=== PATIENT | male | born 1940 | race African-American/Black ===

== ENCOUNTER 2017-04-17 10:40 | Observation (INO) | payer MEDICARE ==
[~2017-04-17] VITALS: Ht 175.3 cm; Wt 86.5 kg
[~2017-04-17 10:40] MED LIST: AVELOX400 MG OR; AZITHROMYCIN500 MG PO; CEPHALEXIN500 M1 PO; CLARITIN10 MG OR; FLEXERIL OR; LOPRESSOR50 M1 PO; LORTAB 7.57.5 MG PO; ROBITUSSIN AC10 ML OR; TIZANIDINE4 MG PO; TUSSIONEX1 ML OR; ULTRAM50 M1 OR; ULTRAM50 MG OR; ULTRAM50 MG PO; UNKNOWN BP MED; ZPAK PO
--- NOTE | 2017-04-17 10:46 | NUR ---
AMBULATORY TO ER ROOM 6, TOBED
[2017-04-17 11:16] LABS: HEMATOCRIT 41.5 % (39.0-50.0); HEMOGLOBIN 13.9 g/dl (14.0-18.0); IMMATURE GRANULOCYTES 0.2 % (0.0-1.0); MEAN CELL VOLUME 91.2 fL CALC (80.0-100.0); MEAN CORPUSCULAR HGB 30.5 pG CALC (26.0-32.0); MEAN CORPUSCULAR HGB CONC 33.5 g/L CALC (32.0-36.0); NEUT# 3.44 thou/uL (1.82-7.42); RED BLOOD COUNT 4.55 mill/uL (4.70-6.10); RED CELL DISTRI WIDTH 13.5 % (11.5-15.5)
[2017-04-17 11:28] LABS: ALBUMIN 4.6 g/dL (3.2-5.0); ALKALINE PHOSPHATASE 76 u/l (38-126); ANION GAP 15 (6-22 (CALC)); BILIRUBIN, TOTAL 1.1 mg/dL (0.0-1.4); BUN 14 mg/dL (8-23); BUN/CREATININE RATIO 16 (12-20 (CALC)); CALCIUM 9.4 mg/dL (8.4-10.2); CARBON DIOXIDE 25 mmol/l (22-30); CHLORIDE 106 mmol/l (95-108); CREATININE 0.9 mg/dL (0.7-1.3); GFR > 60 ML/MIN (>=60 (CALC)); GFR FOR AFR.AMER. > 60 ML/MIN (>=60 (CALC)); GLUCOSE 87 mg/dL (82-115); POTASSIUM 3.9 mmol/l (3.5-5.1); SGOT/AST 28 u/l (19-48); SGPT/ALT 28 u/l (11-66); SODIUM 142 mmol/l (137-146); TOTAL PROTEIN 8.3 g/dL (6.3-8.2)
[2017-04-17 11:40] LABS: MYOGLOBIN 101 ng/mL (0 - 121)
--- NOTE | 2017-04-17 11:40 | NUR ---
PT RESTING ON THE STRETCHER WITH NO SIGNS OF DISTRESS. AWAITING XRAY TESTS. IV SITE HEALTHY
--- NOTE | 2017-04-17 12:30 | NUR ---
PT GIVEN ADDITIONAL DOSE OF BETA YING FOR CONTINUED HTN. PT TOLERATED WELL. STATES NECK PAIN IS SLIGHTLY IMPORVED. BP AFTER DOSE WAS 135/90
--- NOTE | 2017-04-17 12:50 | NUR ---
MD IN ROOM EXPLAINING TEST RESULTS TO PT. PT AWARE OF NEED FOR ADMISSION. PT AGREES.
--- NOTE | 2017-04-17 13:11 | NUR ---
PT AWAITING ADMISSION. MS WILL CALL BACK FOR PT REPORT. NO SGNS OF DISTRESS NOTED. IV SITE HEA;THY
--- NOTE | 2017-04-17 13:30 | NUR ---
Admission Note Report Given to: SBAR PRINTED TO FLOOR Transported by: Wheelchair X Stretcher Transported with: X Nurse Transporter X Patent IV O2 X Sql Database Developer
--- NOTE | 2017-04-17 13:40 | NUR ---
PT.ARRIVED TO FLOOR, SELF AMBULATED TO STANDING SCALE AND TO BED. PT.V/S ASSESSED, BP IS 170/103,HR70 UPON ARRIVING TO FLOOR. PT.IS BEING ORIENTED TO HIS ROOM, CALL SYSTEM, LIGHTS, BED AND CALLING FOR ASSISTANCE BEFORE AMBULATING FOR SAFETY PRECAUTIONS. ELLIOTT REHMAN NOTIFIED OF BP.
[2017-04-17 13:43] VITALS: BP 170/103
[2017-04-17 14:25] VITALS: BP 166/102
--- NOTE | 2017-04-17 14:35 | NUR ---
PT.BP 166/102, MEDICATED W/APPRESALINE AT THIS TIME. WILL CONTINUE TO MONITOR BP CLOSELY.
[2017-04-17 15:00] VITALS: BP 154/93
[2017-04-17 16:00] VITALS: BP 141/90
--- NOTE | 2017-04-17 17:03 | NUR ---
I HAVE SPOKEN W/PHARMACY REGARDING MYCELEX CREAM, I AM STILL WAITING FOR PHARMACY TO BRING CREAM TO THE FLOOR. IT WAS SCHEDULED FOR 1457, BUT I AM UNABLE TO ADMINISTER.
--- NOTE | 2017-04-17 19:40 | NUR ---
PATIENT RESTING IN BED ON FIRST ROUNDS-ALERT AND ORIENTEDX3. PATIENT C/O NECK PAIN-MEDICATED WITH BACLOFENFOR PAIN AND WITH MOTRIN FOR TEMP OF 100.6 AND PAIN. BP-162/103-MEDICATED WITH APRESOLINE 10MG IVP FOR HTN. HEP LOCK TO RIGHT AC INTACT AND APPEARS HEALTHY AT THIS TIME. SAFETY PRECAUTIONS REINFORCED. CALL LIGHT IN REACH. WILL CONT TO MONITOR.
[2017-04-17 20:15] VITALS: BP 114/62
--- NOTE | 2017-04-17 20:26 | NUR ---
VS [id number], HR-84, TEMP 100.1. PATIENT RESTING IN BED AND STATES SOME PAIN RELIEF FROM MOTRIN AND BACLOFEN. INSTRUCTED PATIENT THAT WE NEED URINE SPEC TO SENT TO LAB AND PROVIDED WITH URINAL. VERBALIZES UNDERSTANDING OF THE STATED. CALL LIGHT IN REACH. WILL CONT TO MONITOR.
--- NOTE | 2017-04-17 23:36 | NUR ---
PATIENT APPEARS SLEEPING POSITIONED ON RIGHT SIDE WITH EYES CLOSED. CALL LIGHT IN REACH. WILL CONT TO MONITOR.
[2017-04-18 00:05] VITALS: BP 125/87
[2017-04-18 00:32] LABS: URINE BLOOD DIPSTICK NEGATIVE (NEGATIVE); URINE COLOR YELLOW; URINE GLUCOSE - DIPSTICK NEGATIVE (NEGATIVE); URINE KETONE 15 mg/dL (NEGATIVE); URINE LEUK ESTERASE NEGATIVE (NEGATIVE); URINE NITRITE - DIPSTICK NEGATIVE (Negative); URINE PROTEIN - DIPSTICK NEGATIVE (NEG-TRACE); URINE SPECIFIC GRAVITY 1.025
[2017-04-18 00:38] LABS: URINE CLARITY SL CLOUDY
[2017-04-18 00:39] LABS: URINE BILIRUBIN - DIPSTICK NEGATIVE (NEGATIVE)
[2017-04-18 03:52] VITALS: BP 129/84
--- NOTE | 2017-04-18 04:17 | NUR ---
PATIENT RESTING IN BED AT THIS TIME WITH NO COMPLAINTS. STATES THAT THE PAIN IS BETTER TO HIS NECK. CALL LIGHT IN REACH. WILL CONT TO MONITOR.
[2017-04-18 06:20] LABS: CHOLESTEROL HDL RATIO 2.8 (<4.4 (CALC)); MAGNESIUM 2.1 mg/dL (1.6-2.3)
--- NOTE | 2017-04-18 07:17 | NUR ---
RECEIVED BEDSIDE REPORT FROM YAZMIN PALAFOX. RESTING IN BED WITH EYES CLOSED, AWAKENS EASILY. RESPS EVEN AND UNLABORED ON ROOM AIR, TELE MONITOR IN PLACE. DENIES PAIN OR DISCOMFORT. PLAN OF CARE DISCUSSED. SAFETY PRECAUTIONS REINFORCED. BED IN LOWEST POSITION WITH WHEELS LOCKED. CALL LIGHT WITHIN REACH. ENCOURAGED PT TO CALL FOR ANY NEEDS.
[2017-04-18 07:54] VITALS: BP 142/90
--- NOTE | 2017-04-18 08:50 | NUR ---
DR WEBB IN WITH PT, NEW ORDERS RECEIVED.
[2017-04-18] MEDS ORDERED: CLOTRIMAZOLE13 TOP (10:34)
[2017-04-18] MEDS ORDERED: LOPRESSOR50 M1 PO (10:34)
[2017-04-18] MEDS ORDERED: BACLOFEN10 MG PO (10:34)
[2017-04-18] MEDS ORDERED: ASPIRIN ADULT L81 M2 PO (10:34)
[2017-04-18] MEDS ORDERED: ULTRAM50 MG PO (10:34)
[2017-04-18] MEDS ORDERED: LOSARTAN POT50 MG PO (10:34)
[2017-04-18] MEDS ORDERED: IBUPROFEN600 MG PO (10:34)
[2017-04-18] MEDS ORDERED: PEPCID20 MG PO (10:34)
[2017-04-18 11:35] VITALS: BP 134/83
--- NOTE | 2017-04-18 12:00 | NUR ---
IN HIGH FOWLERS EATING LUNCH. FAMILY AT BEDSIDE. RESPS EVEN AND UNLABORED ON ROOM AIR, TELE MONITOR IN PLACE. DENIES PAIN OR DISCOMFORT. CALL LIGHT WITHIN REACH. WILL CONTINUE TO MONITOR.
--- NOTE | 2017-04-18 12:00 | NUR ---
RESTING IN BED WITH EYES CLOSED, AWAKENS EASILY. SCD'S TO BILAT LOWER EXTREMITIES. DENIES PAIN OR DISCOMFORT. ENCOURAGED PT TO AMBULATE IN HALLWAY. CALL LIGHT WITHIN REACH.
--- NOTE | 2017-04-18 14:25 | NUR ---
Discharge instructions given. Patient verbalizes understanding of same. Discharged in stable condition via Ambulatory to Home with family. All belongings sent with pt.
== END 2017-04-18 14:25 | disposition home or self-care (01) ==
LOC: ED 10:40 → ED-I 12:45 → ED 12:58 → MS2 12:59
PROVIDERS: Emergency Medicine; ADMIT Internal Medicine; ATTEND Internal Medicine
DX: I16.0 Hypertensive urgency (principal); I10 Essential (primary) hypertension; I48.91 Unspecified atrial fibrillation; M47.812 Spondylosis without myelopathy or radiculopathy, cervical region; B35.3 Tinea pedis; M62.838 Other muscle spasm; S16.1XXA Strain of muscle, fascia and tendon at neck level, initial encounter; X50.0XXA Overexertion from strenuous movement or load, initial encounter; Y93.89 Activity, other specified; Z91.14 Patient's other noncompliance with medication regimen

== ENCOUNTER 2017-12-18 20:58 | Emergency (ER) | payer MEDICARE ==
[~2017-12-18] VITALS: Ht 175.3 cm; Wt 80.2 kg
[~2017-12-18 20:58] MED LIST changes: +ASPIRIN ADULT L81 M2 PO; +BACLOFEN10 MG PO; +CLOTRIMAZOLE13 TOP; +IBUPROFEN600 MG PO; +LOSARTAN POT50 MG PO; +PEPCID20 MG PO
[2017-12-18 21:28] LABS: HEMATOCRIT 41.4 % (39.0-50.0); HEMOGLOBIN 13.5 g/dl (14.0-18.0); MEAN CELL VOLUME 93.5 fL CALC (80.0-100.0); MEAN CORPUSCULAR HGB 30.5 pG CALC (26.0-32.0); MEAN CORPUSCULAR HGB CONC 32.6 g/L CALC (32.0-36.0); NEUT# 2.34 thou/uL (1.82-7.42); RED BLOOD COUNT 4.43 mill/uL (4.70-6.10); RED CELL DISTRI WIDTH 14.9 % (11.5-15.5)
[2017-12-18 21:30] LABS: GFR > 60 ML/MIN (>=60 (CALC)); GFR FOR AFR.AMER. > 60 ML/MIN (>=60 (CALC))
[2017-12-18 21:42] LABS: PROTHROMBIN TIME 10.9 SECONDS (9.0-12.5)
[2017-12-18 21:44] LABS: ALKALINE PHOSPHATASE 101 u/l (38-126); ANION GAP 16 (6-22 (CALC)); BILIRUBIN, TOTAL 0.7 mg/dL (0.0-1.4); BUN 22 mg/dL (8-23); BUN/CREATININE RATIO 22 (12-20 (CALC)); CARBON DIOXIDE 27 mmol/l (22-30); CHLORIDE 105 mmol/l (95-108); GFR > 60 ML/MIN (>=60 (CALC)); GFR FOR AFR.AMER. > 60 ML/MIN (>=60 (CALC)); POTASSIUM 3.5 mmol/l (3.5-5.1); SGOT/AST 30 u/l (19-48); SGPT/ALT 46 u/l (11-66); SODIUM 144 mmol/l (137-146)
[2017-12-18 21:46] LABS: ALBUMIN 4.3 g/dL (3.2-5.0); TOTAL PROTEIN 8.2 g/dL (6.3-8.2)
[2017-12-18 21:55] LABS: MYOGLOBIN 43 ng/mL (0 - 121)
[2017-12-18 22:58] VITALS: BP 162/95
[2017-12-18 23:40] LABS: URINE BILIRUBIN - DIPSTICK NEGATIVE (NEGATIVE); URINE BLOOD DIPSTICK NEGATIVE (NEGATIVE); URINE CLARITY CLEAR; URINE COLOR YELLOW; URINE GLUCOSE - DIPSTICK NEGATIVE (NEGATIVE); URINE KETONE NEGATIVE (NEGATIVE); URINE LEUK ESTERASE NEGATIVE (NEGATIVE); URINE NITRITE - DIPSTICK NEGATIVE (Negative); URINE PH 6.5 (4.5-8.0); URINE PROTEIN - DIPSTICK NEGATIVE (NEG-TRACE); URINE UROBILINOGEN - DIPSTICK 0.2 E.U./dL (0.2)
== END 2017-12-18 23:08 | disposition short-term general hospital (02) ==
LOC: ED 20:58
PROVIDERS: Emergency Medicine
DX: I63.9 Cerebral infarction, unspecified (principal); R41.82 Altered mental status, unspecified; I10 Essential (primary) hypertension; R29.702 NIHSS score 2; I48.91 Unspecified atrial fibrillation
CPT/HCPCS: J2997; Q9967

== ENCOUNTER 2018-09-02 15:55 | Observation (INO) | payer MEDICARE ==
[~2018-09-02] VITALS: Ht 175.3 cm; Wt 72.2 kg
[2018-09-02 16:40] VITALS: BP 164/91
[2018-09-02 17:03] LABS: HEMATOCRIT 40.8 % (39.0-50.0); HEMOGLOBIN 13.1 g/dl (14.0-18.0); IMMATURE GRANULOCYTES 0.2 % (0.0-5.0); MEAN CELL VOLUME 93.2 fL CALC (80.0-100.0); MEAN CORPUSCULAR HGB 29.9 pG CALC (26.0-32.0); MEAN CORPUSCULAR HGB CONC 32.1 g/L CALC (32.0-36.0); NEUT# 6.16 thou/uL (1.82-7.42); RED BLOOD COUNT 4.38 mill/uL (4.70-6.10)
[2018-09-02 17:15] LABS: ANION GAP 12 (6-22 (CALC)); BUN 23 mg/dL (8-23); BUN/CREATININE RATIO 26 (12-20 (CALC)); CARBON DIOXIDE 27 mmol/l (22-30); CHLORIDE 103 mmol/l (95-108); CREATININE 0.9 mg/dL (0.7-1.3); GFR > 60 ML/MIN (>=60 (CALC)); GFR FOR AFR.AMER. > 60 ML/MIN (>=60 (CALC)); POTASSIUM 4.4 mmol/l (3.5-5.1); SODIUM 137 mmol/l (137-146)
--- NOTE | 2018-09-02 18:00 | NUR ---
PT TRANSPORTED TO [facility] VIA ACCOMPIANED BY STAFF @1601. PT AMBULATED FROM TO BED W/ STEADY GAIT. VS DONE. PT A/O X3. SPEECH IS GARBLED. PERRLA. RESP EVEN AND UNLABORED. LUNGS WHEEZING ANTERIORLY, DIMINISHED POSTERIORLY. NONPRODUCTIVE COUGH NOTED. O2 @ BEDSIDE. STRONG RADIAL AND PEDAL PULSES. BOWEL SOUNDS ACTIVE X4. #22 LAC D5 1/2 NS@75 IV STARTED BY SOFTWARE QUALITY AUTOMATION ENGINEER @1700; SITE APPEARS HEALTHY. PT DENIES ANY PAIN OR NEEDS. POC DISCUSSED. SAFETY PRECAUTIONS IN PLACE. CALL LIGHT IN REACH. WILL CONTINUE TO MONITOR.
[2018-09-02 18:21] LABS: URINE BILIRUBIN - DIPSTICK NEGATIVE (NEGATIVE); URINE BLOOD DIPSTICK NEGATIVE (NEGATIVE); URINE COLOR YELLOW; URINE GLUCOSE - DIPSTICK NEGATIVE (NEGATIVE); URINE KETONE NEGATIVE (NEGATIVE); URINE LEUK ESTERASE NEGATIVE (Negative); URINE NITRITE - DIPSTICK NEGATIVE (Negative); URINE PROTEIN - DIPSTICK TRACE mg/dL (NEG-TRACE); URINE SPECIFIC GRAVITY 1.025; URINE UROBILINOGEN - DIPSTICK 0.2 E.U./dL (0.2)
[2018-09-02 18:23] LABS: URINE CLARITY CLEAR
[2018-09-02 19:30] VITALS: BP 137/84
--- NOTE | 2018-09-02 20:29 | NUR ---
PATIENT RESTING IN BED AT THIS TIME-AWAKE ALERT AND ORIENTEDX3. PATIENT WITH PERSISTANT NON-PRODUCTIVE COUGH. INSTRUCTED ON NEED FOR SPUTUM SPEC WHEN ABLE AND CONTAINER AT BEDSIDE. PATIENT WITH IV SITE TO LEFT AC INTACT WITH IVF D51/2NS PATENT AND INFUSING AT 75CC/HR. AZITHROMYCIN HUNG ORDERED. SITE IS HEALTHY AT THIS TIME. PATIENT WITH NO APPETITE FOR DINNER. VOIDING SMALL AMT OF LEONARD URINE IN URINAL. STATES THAT HE HAD BM TODAY. SAFETY PRECAUTIONS REINFORCED. CALL LIGHT IN REACH. WILL CONT TO MONITOR.
--- NOTE | 2018-09-02 22:53 | NUR ---
PATIENT APPEARS SLEEPING AT THIS TIME WITH EYES CLOSED. IVF PATENT AND INFUSING LAC SITE AT 75CC/HR. SITE REMAINS HEALTHY. CALL LIGHT IN REACH. WILL CONT TO MONITOR.
[2018-09-03] VITALS (7 sets, daily range): BP systolic 144–172; BP diastolic 87–103
--- NOTE | 2018-09-03 00:30 | NUR ---
PATIENT APPEARS SLEEPING AT THIS TIME WITH HOB ELEVATED AND EYES CLOSED. IVF PATENT AND INFUSING AT 75CC/HR. SOLU-MEDROL GIVEN ORDERED. CALL LIGHT IN REACH. WILL CONT TO MONITOR.
--- NOTE | 2018-09-03 03:54 | NUR ---
PATIENT VOIDED 800CC OF LEONARD U RINE IN URINAL. APPEARS SLEEPING AT THIS TIME. IVF PATENT AND INFUSING AT 75CC/HR VIA LAC SITE. SITE REMAINS HEALTHY AT THIS TIME. CALL LIGHT IN REACH. WILL CONT TO MONITOR.
[2018-09-03 05:42] LABS: HEMATOCRIT 40.5 % (39.0-50.0); HEMOGLOBIN 13.3 g/dl (14.0-18.0); IMMATURE GRANULOCYTES 0.4 % (0.0-5.0); MEAN CELL VOLUME 91.6 fL CALC (80.0-100.0); MEAN CORPUSCULAR HGB 30.1 pG CALC (26.0-32.0); MEAN CORPUSCULAR HGB CONC 32.8 g/L CALC (32.0-36.0); NEUT# 6.87 thou/uL (1.82-7.42); RED BLOOD COUNT 4.42 mill/uL (4.70-6.10); RED CELL DISTRI WIDTH 13.9 % (11.5-15.5)
[2018-09-03 05:51] LABS: ALBUMIN 3.3 g/dL (3.2-5.0); ALKALINE PHOSPHATASE 81 u/l (38-126); ANION GAP 13 (6-22 (CALC)); BILIRUBIN, TOTAL 0.8 mg/dL (0.0-1.4); BUN 15 mg/dL (8-23); BUN/CREATININE RATIO 22 (12-20 (CALC)); CARBON DIOXIDE 27 mmol/l (22-30); CHLORIDE 103 mmol/l (95-108); CREATININE 0.7 mg/dL (0.7-1.3); GFR > 60 ML/MIN (>=60 (CALC)); GFR FOR AFR.AMER. > 60 ML/MIN (>=60 (CALC)); POTASSIUM 4.2 mmol/l (3.5-5.1); SGOT/AST 23 u/l (19-48); SODIUM 140 mmol/l (137-146); TOTAL PROTEIN 6.6 g/dL (6.3-8.2)
--- NOTE | 2018-09-03 07:00 | NUR ---
SHIFT CHANGE REPORT, PT SLEEPING BUT AWAKENED TO VERBAL STIMULI, IVF INFUSING TO SITE IN LAC, NO C/O DISCOMFORT AT THIS TIME, CALL ALVAREZ IN REACH.
[2018-09-03] MEDS ORDERED: TRAMADOL HYDROC50 MG PO (13:09)
--- NOTE | 2018-09-03 13:11 | NUR ---
Went to the patient's room to do a med reconciliation. Patient was only able to confirm his metoprolol and told me his usually takes care of his meds. Called his and she confirmed the patient's home meds. I have Updated the patient's chart.
--- NOTE | 2018-09-03 16:12 | NUR ---
RESTING IN BED AT THIS TIME, ALL NEEDS MET/ADDRESSED.
--- NOTE | 2018-09-03 20:10 | NUR ---
PT. SITTING UP IN BED WITH NO DISTRESS NOTED; RESP EVEN AND UNLABORED; ASSESSMENT COMPLETED; PT. WITH MOIST NON-PRODUCTIVE COUGH; PT. IS AWARE OF NEED FOR SPUTUM SAMPLE; SPECIMEN CUP AT BEDSIDE; B/P 165/98 AND HR 99 ; MEDICATED WITH ORDERED LOPRESSOR; WILL REASSESS; IV SITE RE-CONNECTED AFTER SHOWER; PT. IS INSTRUCTED TO USE URINAL AT ALL TIMES FOR VOIDS; ENCOURAGED TO CALL FOR ANY NEEDS; CALL LIGHT IS IN REACH; WILL CONTINUE TO MONITOR.
--- NOTE | 2018-09-03 21:13 | NUR ---
REASSESSED B/P NOW 144/91 AND HR 100; MEDICATED WITH ORDERED APRESOLINE; WILL CONTINUE TO MONITOR; DENIES NEEDS; PO FLUIDS OFFERED; CALL LIGHT IS IN REACH;
--- NOTE | 2018-09-03 23:41 | NUR ---
PT. C/O SLIGHT SORENESS R/T COUGHING; MEDICATED WITH ORDERED TRAMADOL; WILL REASSESS; DENEIS FURTHER NEEDS;
--- NOTE | 2018-09-04 00:45 | NUR ---
CALLED DR. GRUBBS AND NOTIFIED HIM OF PT. REPORTING SLEEPLESSNESS R/T COUGHING; NEW ORDERS RECEIVED AND TO BE CARRIED OUT;
--- NOTE | 2018-09-04 01:19 | NUR ---
PT. MEDICATED WITH ORDERED PRN RESTORIL AND URINAL EMPTIED; CALL LIGHT IS IN REACH.
[2018-09-04 03:46] VITALS: BP 137/89
--- NOTE | 2018-09-04 03:46 | NUR ---
PT. IS RESTING IN BED WITH NO DISTRESS NOTED; VSS; DENIES NEEDS/PAIN. ENCOURAGED TO CALL FOR ANY NEEDS; CALL LIGHT IS IN REACH.
--- NOTE | 2018-09-04 06:20 | NUR ---
PT. RESTING IN BED WITH EYES OPEN; NO DISTRESS NOTED; DENIES NEEDS; CALL LIGHT IS IN REACH; WILL CONTINUE TO MONITOR.
--- NOTE | 2018-09-04 07:00 | NUR ---
SHIFT CHANGE REPORT, PT AWAKE ALERT AND ORIENTED RELAXING IN BED, NO C/O DISCOMFORT AT THIS TIME, STATE COUGH MED DOES GIVE SOME RELIEF BUT HE DID NOT SLEEP AT HS, IVF INFUSING AND CALL ALVAREZ IN REACH. DR GRUBBS ROUNDED AND WROTE ORDERS.
[2018-09-04 08:14] VITALS: BP 150/89
[2018-09-04 12:46] VITALS: BP 151/87
[2018-09-04 16:23] VITALS: BP 136/84
--- NOTE | 2018-09-04 18:13 | NUR ---
HOME MEDS SENT HOME WITH SPOUSE.
[2018-09-04 18:47] VITALS: BP 162/94
--- NOTE | 2018-09-04 19:01 | NUR ---
REPORT FROM CRYSTAL PALAFOX. PT RESTING IN BED. ALERT AND ORIENTED. PT DENIES ANY PAIN OR DISCOMFORT. IV SITE APPEARS HEALTHY. RESPIRATIONS EVEN AND UNLABORED. DISCUSSED POC AND SAFETY PRECAUTIONS, PT VERBLIZED UNDERSTANDING. CALL LIGHT WITHIN REACH. WILL CONTINUE TO MONITOR.
--- NOTE | 2018-09-04 22:10 | NUR ---
REPORT RECEIVED FROM Lele RODNEY LPN;
[2018-09-04 22:31] VITALS: BP 152/100
--- NOTE | 2018-09-04 22:51 | NUR ---
PT. MEDICATED WITH ORDERED APRESOLINE FOR B/P 152/100 AND HR 91; WILL REASSESS; ALSO MEDICATED WITH ORDERED PRN RESTORIL TO ASSIST WITH SLEEP; DENIES NEEDS; CALL LIGHT IS IN REACH; WILL CONTINUE TO MONITOR.
[2018-09-05] VITALS: BP 134/85
--- NOTE | 2018-09-05 | NUR ---
ADMINISTRATIVE ASSISTANT RECEPTIONIST REASSESSED B/P AND NOW DOWN TO 134/85 AND HR 69; DENIES NEEDS; CALL LIGHT IS IN REACH; WILL CONTINUE TO MONITOR.
--- NOTE | 2018-09-05 01:38 | NUR ---
PT. RESTING IN BED WITH EYES CLOSED; RESP EVEN AND UNLABORED; CALL LIGHT IS IN REACH; WILL CONTINUE TO MONITOR.
[2018-09-05 03:48] VITALS: BP 143/93
--- NOTE | 2018-09-05 03:48 | NUR ---
PT. RESTING IN BED ON LEFT SIDE WITH NO DISTRESS NOTED; VS OBTAINED; DENIES NEEDS/PAIN; URINAL EMPTIED; CALL LIGHT IS IN REACH.
[2018-09-05 05:35] LABS: HEMATOCRIT 39.9 % (39.0-50.0); HEMOGLOBIN 13.1 g/dl (14.0-18.0); IMMATURE GRANULOCYTES 0.5 % (0.0-5.0); MEAN CELL VOLUME 92.1 fL CALC (80.0-100.0); MEAN CORPUSCULAR HGB 30.3 pG CALC (26.0-32.0); MEAN CORPUSCULAR HGB CONC 32.8 g/L CALC (32.0-36.0); NEUT# 5.47 thou/uL (1.82-7.42); RED BLOOD COUNT 4.33 mill/uL (4.70-6.10); RED CELL DISTRI WIDTH 14.1 % (11.5-15.5)
[2018-09-05 05:55] LABS: ALKALINE PHOSPHATASE 82 u/l (38-126); ANION GAP 11 (6-22 (CALC)); BILIRUBIN, TOTAL 0.5 mg/dL (0.0-1.4); BUN 16 mg/dL (8-23); BUN/CREATININE RATIO 24 (12-20 (CALC)); CARBON DIOXIDE 27 mmol/l (22-30); CHLORIDE 107 mmol/l (95-108); CREATININE 0.7 mg/dL (0.7-1.3); GFR > 60 ML/MIN (>=60 (CALC)); GFR FOR AFR.AMER. > 60 ML/MIN (>=60 (CALC)); POTASSIUM 4.1 mmol/l (3.5-5.1); SGOT/AST 27 u/l (19-48); SODIUM 141 mmol/l (137-146); TOTAL PROTEIN 6.2 g/dL (6.3-8.2)
--- NOTE | 2018-09-05 06:33 | NUR ---
PT. DOWN TO XRAY VIA W/C ACCOMPANIED BY SPIRAL RUNNER.
--- NOTE | 2018-09-05 06:44 | NUR ---
PT. BACK FROM CXRAY.
--- NOTE | 2018-09-05 07:05 | NUR ---
REPORT RECEIVED FROM JAVY AMADOR; PT AMBULATORY IN ROOM; RESP EVEN AND UNLABORED ON ROOM AIR; CALL ALVAREZ IN REACH.
[2018-09-05 08:14] VITALS: BP 136/100
[2018-09-05 08:18] VITALS: BP 136/100
--- NOTE | 2018-09-05 08:20 | NUR ---
ASSESSMENT COMPLETED; SITTING UP IN BED WATCHING TV; A/O X2; IV #22 LAC, FLUSHED WELL, SITE APPEARS HEALTHY; VOIDED 400CC CLEAR, YELLOW URINE; AMBULATORY IN ROOM; VOICE NO CONCERNS, EXCEPT WANTING TO GO HOME; AM MEDS ADMINISTERED, TOLERATE WELL; CALL ALVAREZ IN REACH; SAFETY PRECAUTION REINFORCE; WILL CONTINUE TO MONITOR.
--- NOTE | 2018-09-05 08:34 | NUR ---
DR GRUBBS AT BEDSIDE TO DISCUSS POC.
[2018-09-05] MEDS ORDERED: LEVAQUIN750 MG PO (08:52)
--- NOTE | 2018-09-05 11:47 | NUR ---
PT SITTING EDGE OF BED EATING LUNCH; RESP EVEN AND UNLABORED ON ROOM AIR; D/C INSTRUCTIONS GIVEN, VERBALIZE UNDERSTANDING; STATES WILL DRIVE SELF HOME; IV REMOVED, CATH INTACT;
--- NOTE | 2018-09-05 12:15 | NUR ---
Discharge instructions given. Patient verbalizes understanding of same. Discharged in stable condition via Wheelchair to Home with staff. All belongings sent with pt.
== END 2018-09-05 12:15 | disposition home or self-care (01) ==
LOC: MS2 15:55
PROVIDERS: ADMIT Internal Medicine Geriatric Medicine; ATTEND Internal Medicine Geriatric Medicine
DX: J18.9 Pneumonia, unspecified organism (principal); I16.0 Hypertensive urgency; I10 Essential (primary) hypertension; I25.10 Atherosclerotic heart disease of native coronary artery without angina pectoris; F41.1 Generalized anxiety disorder; I48.91 Unspecified atrial fibrillation

== ENCOUNTER 2021-11-27 01:24 | Emergency (ER) | payer MEDICARE ==
[2021-11-27] VITALS (11 sets, daily range): BP systolic 139–213; BP diastolic 75–137
[~2021-11-27] VITALS: Ht 175.3 cm; Wt 74.2 kg
[~2021-11-27 01:24] MED LIST changes: +AMLODIPINE BESYL5 MG PO; +BAYER ASPIRIN325 M1 PO; +LEVAQUIN750 MG PO; +METOPROL TAR100 MG PO; +TRAMADOL HYDROC50 MG PO
[2021-11-27] MEDS ORDERED: BP MED (01:38)
[2021-11-27 02:07] LABS: HEMOGLOBIN 13.6 g/dl (14.0-18.0); IMMATURE GRANULOCYTES 0.2 % (0.0-5.0); MEAN CELL VOLUME 97.7 fL CALC (80.0-100.0); MEAN CORPUSCULAR HGB 30.9 pG CALC (26.0-32.0); MEAN CORPUSCULAR HGB CONC 31.6 g/dL CAL (32.0-36.0); NEUT# 1.84 thou/uL (1.82-7.42); RED BLOOD COUNT 4.4 mill/uL (4.70-6.10); RED CELL DISTRI WIDTH 13.7 % (11.5-15.5)
[2021-11-27 02:15] LABS: ALKALINE PHOSPHATASE 76 u/l (38-126); AMYLASE 90 u/l (30-110); ANION GAP 8 (6-22 (CALC)); BILIRUBIN, TOTAL 0.8 mg/dL (0.0-1.4); BUN 17 mg/dL (8-23); BUN/CREATININE RATIO 14 (12-20 (CALC)); CARBON DIOXIDE 31 mmol/l (22-30); CHLORIDE 104 mmol/l (95-108); CREATININE 1.2 mg/dL (0.7-1.3); GFR FOR AFR.AMER. > 60 ML/MIN (>=60 (CALC)); GFR OTHER RACES 59 ML/MIN (>=60 (CALC)); LIPASE 63 u/l (23-300); POTASSIUM 3.8 mmol/l (3.5-5.1); SGOT/AST 26 u/l (19-48); SODIUM 140 mmol/l (137-146); TOTAL PROTEIN 7.7 g/dL (6.3-8.2)
[2021-11-27 03:02] LABS: URINE BILIRUBIN - DIPSTICK NEGATIVE (NEGATIVE); URINE BLOOD DIPSTICK NEGATIVE (NEGATIVE); URINE COLOR YELLOW; URINE GLUCOSE - DIPSTICK NEGATIVE (NEGATIVE); URINE KETONE NEGATIVE (NEGATIVE); URINE LEUK ESTERASE NEGATIVE (NEGATIVE); URINE NITRITE - DIPSTICK NEGATIVE (Negative); URINE PROTEIN - DIPSTICK NEGATIVE (NEG-TRACE); URINE SPECIFIC GRAVITY 1.015; URINE UROBILINOGEN - DIPSTICK 0.2 E.U./dL (0.2)
== END 2021-11-27 03:57 | disposition home or self-care (01) ==
LOC: ED 01:24
PROVIDERS: Family Medicine
DX: B02.9 Zoster without complications (principal); I48.91 Unspecified atrial fibrillation; R00.1 Bradycardia, unspecified; I10 Essential (primary) hypertension; Z86.73 Personal history of transient ischemic attack (TIA), and cerebral infarction without residual deficits

== ENCOUNTER 2021-12-03 13:39 | Emergency (ER) | payer MEDICARE ==
[2021-12-03] VITALS (18 sets, daily range): BP systolic 127–180; BP diastolic 70–124
[~2021-12-03] VITALS: Ht 175.3 cm; Wt 63.6 kg
[~2021-12-03 13:39] MED LIST changes: +BP MED
[2021-12-03 14:06] LABS: HEMATOCRIT 44.3 % (39.0-50.0); HEMOGLOBIN 14.5 g/dl (14.0-18.0); MEAN CELL VOLUME 94.5 fL CALC (80.0-100.0); MEAN CORPUSCULAR HGB 30.9 pG CALC (26.0-32.0); MEAN CORPUSCULAR HGB CONC 32.7 g/dL CAL (32.0-36.0); NEUT# 1.73 thou/uL (1.82-7.42); RED BLOOD COUNT 4.69 mill/uL (4.70-6.10); RED CELL DISTRI WIDTH 13.3 % (11.5-15.5)
[2021-12-03 14:19] LABS: ALBUMIN 4.3 g/dL (3.2-5.0); BILIRUBIN, TOTAL 0.9 mg/dL (0.0-1.4); CREATININE 1.4 mg/dL (0.7-1.3); MAGNESIUM 2.1 mg/dL (1.6-2.3); POTASSIUM 3.8 mmol/l (3.5-5.1); TOTAL PROTEIN 8.3 g/dL (6.3-8.2)
[2021-12-03] MEDS ORDERED: HYDROCO/APAP1 TA9 PO (16:08)
[2021-12-03] MEDS ORDERED: ACYCLOVIR800 MG PO (16:08)
[2021-12-03] MEDS ORDERED: ZOFRAN4 MG/TAB PO (16:08)
[2021-12-03] MEDS ORDERED: GABAPENTIN300 M2 PO (16:08)
== END 2021-12-03 17:42 | disposition home or self-care (01) ==
LOC: ED 13:39
PROVIDERS: Internal Medicine
DX: B02.9 Zoster without complications (principal); R05.9 Cough, unspecified; I10 Essential (primary) hypertension; I48.91 Unspecified atrial fibrillation; R41.82 Altered mental status, unspecified

== ENCOUNTER 2022-03-17 17:02 | Emergency (ER) | payer MEDICARE ==
[~2022-03-17] VITALS: Ht 175.3 cm; Wt 79.3 kg
[2022-03-17] VITALS (8 sets, daily range): BP systolic 166–220; BP diastolic 101–127
[~2022-03-17 17:02] MED LIST changes: +ACYCLOVIR800 MG PO; +GABAPENTIN300 M2 PO; +HYDROCO/APAP1 TA9 PO; +ZOFRAN4 MG/TAB PO
[2022-03-17 18:40] LABS: HEMATOCRIT 39.9 % (39.0-50.0); HEMOGLOBIN 12.8 g/dl (14.0-18.0); IMMATURE GRANULOCYTES 0.2 % (0.0-5.0); MEAN CELL VOLUME 95.9 fL CALC (80.0-100.0); MEAN CORPUSCULAR HGB 30.8 pG CALC (26.0-32.0); MEAN CORPUSCULAR HGB CONC 32.1 g/dL CAL (32.0-36.0); NEUT# 2.78 thou/uL (1.82-7.42); RED BLOOD COUNT 4.16 mill/uL (4.70-6.10); RED CELL DISTRI WIDTH 14.7 % (11.5-15.5)
[2022-03-17 18:54] LABS: ALBUMIN 4.2 g/dL (3.2-5.0); ALKALINE PHOSPHATASE 76 u/l (38-126); ANION GAP 12 (6-22 (CALC)); BILIRUBIN, TOTAL 0.9 mg/dL (0.0-1.4); BUN 19 mg/dL (8-23); BUN/CREATININE RATIO 15 (12-20 (CALC)); CARBON DIOXIDE 28 mmol/l (22-30); CHLORIDE 106 mmol/l (95-108); CPK 98 u/l (52-200); CREATININE 1.2 mg/dL (0.7-1.3); ETHYL ALCOHOL 0 mg/dl (0-30); GFR FOR AFR.AMER. > 60 ML/MIN (>=60 (CALC)); GFR OTHER RACES 58 ML/MIN (>=60 (CALC)); MAGNESIUM 2.2 mg/dL (1.6-2.3); SGOT/AST 35 u/l (19-48); SODIUM 141 mmol/l (137-146); TOTAL PROTEIN 7.8 g/dL (6.3-8.2)
[2022-03-17 18:59] LABS: ACT PARTIAL THROMBO TIME 23.9 SECONDS (20.0-32.5); INTERNATIONAL NORMALIZED RATIO 1.1 RATIO (0.7-1.3); PROTHROMBIN TIME 10.5 SECONDS (9.0-12.5)
[2022-03-17 19:24] LABS: TSH, 3RD GENERATION 1.49 uIU/mL (0.47 - 4.68)
[2022-03-17 19:41] LABS: URINE BILIRUBIN - DIPSTICK NEGATIVE (NEGATIVE); URINE BLOOD DIPSTICK TRACE-INTACT (NEGATIVE); URINE COLOR YELLOW; URINE GLUCOSE - DIPSTICK NEGATIVE (NEGATIVE); URINE KETONE NEGATIVE (NEGATIVE); URINE LEUK ESTERASE NEGATIVE (NEGATIVE); URINE PH 6.5 (4.5-8.0); URINE PROTEIN - DIPSTICK NEGATIVE (NEG-TRACE); URINE SPECIFIC GRAVITY 1.015; URINE UROBILINOGEN - DIPSTICK 0.2 E.U./dL (0.2)
[2022-03-17 19:42] LABS: URINE NITRITE - DIPSTICK NEGATIVE (Negative)
[2022-03-17] MEDS ORDERED: ELIQUIS5 MG PO (20:32)
== END 2022-03-17 21:06 | disposition home or self-care (01) ==
LOC: ED 17:02
PROVIDERS: Family Medicine
DX: S00.12XA Contusion of left eyelid and periocular area, initial encounter (principal); S80.02XA Contusion of left knee, initial encounter; S80.01XA Contusion of right knee, initial encounter; I10 Essential (primary) hypertension; I48.91 Unspecified atrial fibrillation; W01.190A Fall on same level from slipping, tripping and stumbling with subsequent striking against furniture, initial encounter; Y92.009 Unspecified place in unspecified non-institutional (private) residence as the place of occurrence of the external cause; Z79.82 Long term (current) use of aspirin; Z86.73 Personal history of transient ischemic attack (TIA), and cerebral infarction without residual deficits; Z20.822 Contact with and (suspected) exposure to COVID-19

== ENCOUNTER 2023-07-21 19:46 | Emergency (ER) | payer MEDICARE ==
[2023-07-21] VITALS (8 sets, daily range): BP systolic 176–213; BP diastolic 109–131
[~2023-07-21] VITALS: Ht 175.3 cm; Wt 68.0 kg
[~2023-07-21 19:46] MED LIST changes: +ASPIRIN 81 LOW81 MG PO; +ATORVASTATIN CA40 MG PO; +CARDIZEM CD120 M1 PO; +ELIQUIS STARTER5 MG PO; +ELIQUIS5 MG PO; +NORVASC PO
[2023-07-21] MEDS ORDERED: CLINDAMYCIN PHOSPHATE IN D5W 50 ML IV ONE (21:05)
[2023-07-21] MEDS ORDERED: SODIUM CHLORIDE 0.9% 1,000 ML IV ONE ×2 (21:05→21:10)
[2023-07-21] MEDS ORDERED: VANCOMYCIN HCL 1 GM in SODIUM CHLORIDE 0.9% 250 ML IV ONE (21:05)
[2023-07-21] MEDS ORDERED: CEFEPIME HYDROCHLORIDE 2 GM in SODIUM CHLORIDE 0.9% 100 ML IV ONE (21:05)
[2023-07-21] MEDS ORDERED: Diph, Acellular Pertussis, Tet 0.5 ML/VIAL (Tdap) SDV IM ONE (21:10)
[2023-07-21] MEDS ORDERED: MORPHINE SULFATE 4 MG/ML VIAL IV ONE (21:10)
[2023-07-21 21:37] LABS: BASO% 0.3 % (0-3); HEMOGLOBIN 13.5 g/dl (14.0-18.0); IMMATURE GRANULOCYTES 0.1 % (0.0-5.0); LYMPH% 20.7 % (15-41); MEAN CELL VOLUME 94.8 fL CALC (80.0-100.0); MEAN CORPUSCULAR HGB 30.5 pG CALC (26.0-32.0); MEAN CORPUSCULAR HGB CONC 32.1 g/dL CAL (32.0-36.0); NEUT# 4.77 thou/uL (1.82-7.42); NEUT% 66.9 % (42-76); RED BLOOD COUNT 4.43 mill/uL (4.70-6.10); RED CELL DISTRI WIDTH 13.3 % (11.5-15.5)
[2023-07-21 21:49] LABS: ALKALINE PHOSPHATASE 64 u/l (38-126); ANION GAP 11 (6-22 (CALC)); BUN 20 mg/dL (8-23); BUN/CREATININE RATIO 19 (12-20 (CALC)); CARBON DIOXIDE 28 mmol/l (22-30); CHLORIDE 107 mmol/l (95-108); CPK 86 u/l (55-170); CREATININE 1.1 mg/dL (0.7-1.3); GFR FOR AFR.AMER. > 60 ML/MIN (>=60 (CALC)); GFR OTHER RACES > 60 ML/MIN (>=60 (CALC)); POTASSIUM 4.1 mmol/l (3.5-5.1); SGOT/AST 31 u/l (19-48); SODIUM 141 mmol/l (137-146)
[2023-07-21 21:52] LABS: ALBUMIN 4.4 g/dL (3.2-5.0); TOTAL PROTEIN 8.5 g/dL (6.3-8.2)
[2023-07-21 23:15] LABS: URINE BILIRUBIN - DIPSTICK Negative (NEGATIVE); URINE BLOOD DIPSTICK Moderate (NEGATIVE); URINE GLUCOSE - DIPSTICK Negative (NEGATIVE); URINE KETONE Negative (NEGATIVE); URINE LEUK ESTERASE Negative (NEGATIVE); URINE NITRITE - DIPSTICK Negative (Negative); URINE PH 6.5 (4.5-8.0); URINE PROTEIN - DIPSTICK 30 mg/dL (NEG-TRACE); URINE UROBILINOGEN - DIPSTICK 0.2 E.U./dL (0.2)
[2023-07-21 23:34] LABS: URINE COLOR Yellow
[2023-07-21 23:36] LABS: URINE MUCUS FEW hpf (NONE-FEW); URINE SQUAMOUS EPITHELIAL CELL FEW EPI/hpf (0-FEW)
[2023-07-22] VITALS (8 sets, daily range): BP systolic 174–209; BP diastolic 111–134
[2023-07-22] MEDS ORDERED: ENALAPRILAT 1.25 MG/ML 1ML IV ONE (00:40)
== END 2023-07-22 01:30 ==
LOC: ED 19:46
PROVIDERS: Emergency Medicine
DX: S67.21XA Crushing injury of right hand, initial encounter (principal); T79.A11A Traumatic compartment syndrome of right upper extremity, initial encounter; I10 Essential (primary) hypertension; I48.91 Unspecified atrial fibrillation; W23.0XXA Caught, crushed, jammed, or pinched between moving objects, initial encounter; Z86.73 Personal history of transient ischemic attack (TIA), and cerebral infarction without residual deficits
CPT/HCPCS: J0692; Q9967; S0077